=== PATIENT | female | born 1970 | race Caucasian/White ===

== ENCOUNTER 2016-07-16 11:00 | Observation (INO) | payer OTHER ==
[~2016-07-16] VITALS: Ht 170.2 cm; Wt 65.5 kg
[2016-07-16] VITALS (9 sets, daily range): BP systolic 99–126; BP diastolic 57–73
[2016-07-16 12:25] LABS: EOSINOPHIL (%) 0.9 % (0-5); EOSINOPHIL COUNT 0.1 K/uL (0-0.3); HEMATOCRIT 27.2 % (36.0-46.0); IMMATURE GRANULOCYTE (%) 0.3 % (0.0-0.7); INSTRUMENT ABS NEUTROPHIL CT 6.3 K/uL; LYMPHOCYTE COUNT 1.1 K/uL (1.0-2.8); MCH 16.8 PG (29.0-34.0); MCHC 26.5 G/DL (30.0-36.0); MCV 63.6 FL (83-99); MEAN PLAT.VOLUME 10.1 uM^3 (9.5-12.4); MONOCYTE (%) 4.6 % (3-12); MONOCYTE COUNT 0.4 K/uL (0-0.8); NEUTROPHIL (%) 79.5 % (45-76); NEUTROPHIL COUNT 6.3 K/uL (1.8-6.4); PLATELET COUNT 281 K/uL (156-360); RBC DIS.WIDTH-CV 17.6 % (11.8-14.6); RBC DIS.WIDTH-SD 39.8 % (39-53); RED BLOOD COUNT 4.28 M/uL (3.80-5.20); WHITE BLOOD COUNT 7.9 K/uL (4.1-10.2)
[2016-07-16 12:33] LABS: D-DIMER ELISA 0.67 mg/L FEU (< 0.57); INTER. NORMALIZED RATIO 1.1; PROTHROMBIN TIME 10.7 (9.2-11.2); PTT 24.7 (25-32)
[2016-07-16 13:20] LABS: TROP-I INTERPRETATION NEGATIVE; TROPONIN-I < 0.01 ng/mL (0.0-0.30)
[2016-07-16 13:21] LABS: ANION GAP 8 MEQ/L (2-14); CHLORIDE 109 MEQ/L (99-109); GFR ESTIMATE (CALCULATED) > 59 mL/min/; GLUCOSE 98 mg/dL (70-99); POTASSIUM 3.4 MEQ/L (3.7-5.4); SAMPLE HEMOLYSIS CHECK 0; SAMPLE ICTERIC CHECK 0; SAMPLE LIPEMIA CHECK 0; SODIUM 141 MEQ/L (136-147); UREA NITROGEN (BUN) 8 mg/dL (9-23)
[2016-07-16] MEDS ORDERED: CALCIUM 600 +1 EA16 PO (15:26)
[2016-07-16] MEDS ORDERED: LEVO-T112 MCG PO (15:26)
[2016-07-16] MEDS ORDERED: FEOSOL325 MG PO (15:27)
[2016-07-16] MEDS ORDERED: DAILY VALUE1 EACH PO (15:27)
[2016-07-16 23:48] LABS: CHLORIDE 112 mEq/L (99-109); POTASSIUM 3.8 mEq/L (3.7-5.4); SODIUM 142 mEq/L (136-147)
[2016-07-16 23:50] LABS: GLUCOSE 99 mg/dL (70-99)
[2016-07-16 23:51] LABS: ANION GAP 7 MEQ/L (2-14)
[2016-07-16 23:52] LABS: TOTAL BILIRUBIN 0.4 mg/dL (0.0-1.0)
[2016-07-16 23:54] LABS: ALKALINE PHOSPHATASE 37 IU/L (3-129); GFR ESTIMATE (CALCULATED) > 59 mL/min/
[2016-07-16 23:55] LABS: UREA NITROGEN (BUN) 5 mg/dL (9-23)
[2016-07-17 00:09] LABS: HEMATOCRIT 27.7 % (36.0-46.0); MCH 18.4 PG (29.0-34.0); MCHC 27.8 G/DL (30.0-36.0); MCV 66.3 FL (83-99); RBC DIS.WIDTH-CV 20.7 % (11.8-14.6); RBC DIS.WIDTH-SD 45.3 % (39-53); RED BLOOD COUNT 4.18 M/uL (3.80-5.20); WHITE BLOOD COUNT 7.3 K/uL (4.1-10.2)
[2016-07-17 02:45] LABS: HEMATOLOGY COMMENT 1 SN; PLAT.SUFFICIENCY ADEQUATE; PLATELET CLUMPS PRESENT - PLATELET COUNT APPEARS ADQ.; PLATELET COUNT UNABLE TO REPORT K/uL (156-360)
[2016-07-17 03:55] VITALS: BP 102/51
[2016-07-17 06:47] LABS: MCH 18.5 PG (29.0-34.0); MCHC 27.9 G/DL (30.0-36.0); MCV 66.5 FL (83-99); MEAN PLAT.VOLUME 10.1 uM^3 (9.5-12.4); PLATELET COUNT 244 K/uL (156-360); RBC DIS.WIDTH-CV 20.7 % (11.8-14.6); RBC DIS.WIDTH-SD 45.5 % (39-53); RED BLOOD COUNT 4.21 M/uL (3.80-5.20); WHITE BLOOD COUNT 6.1 K/uL (4.1-10.2)
[2016-07-17 07:00] VITALS: BP 111/73
[2016-07-17 07:39] LABS: ANION GAP 8 MEQ/L (2-14); CHLORIDE 110 MEQ/L (99-109); GFR ESTIMATE (CALCULATED) > 59 mL/min/; GLUCOSE 99 mg/dL (70-99); POTASSIUM 3.7 MEQ/L (3.7-5.4); SAMPLE HEMOLYSIS CHECK 0; SAMPLE ICTERIC CHECK 0; SAMPLE LIPEMIA CHECK 0; SODIUM 142 MEQ/L (136-147); UREA NITROGEN (BUN) 6 mg/dL (9-23)
[2016-07-17 10:34] LABS: HEMATOCRIT 29.4 % (36.0-46.0); MCV 66.8 FL (83-99)
[2016-07-17 11:37] VITALS: BP 114/63
[2016-07-17 16:00] VITALS: BP 127/64
[2016-07-17 20:06] VITALS: BP 125/74
[2016-07-17 23:43] VITALS: BP 104/54
[2016-07-18 03:29] VITALS: BP 100/54
[2016-07-18 06:50] LABS: HEMATOCRIT 27.8 % (36.0-46.0); MCHC 28.4 G/DL (30.0-36.0); MEAN PLAT.VOLUME 10.3 uM^3 (9.5-12.4); PLATELET COUNT 257 K/uL (156-360); RBC DIS.WIDTH-CV 20.9 % (11.8-14.6); RBC DIS.WIDTH-SD 45.8 % (39-53); RED BLOOD COUNT 4.15 M/uL (3.80-5.20); WHITE BLOOD COUNT 4.7 K/uL (4.1-10.2)
[2016-07-18 07:54] LABS: ANION GAP 5 MEQ/L (2-14); CHLORIDE 112 MEQ/L (99-109); GFR ESTIMATE (CALCULATED) > 59 mL/min/; GLUCOSE 90 mg/dL (70-99); POTASSIUM 3.5 MEQ/L (3.7-5.4); SAMPLE HEMOLYSIS CHECK 0; SAMPLE ICTERIC CHECK 0; SAMPLE LIPEMIA CHECK 0; SODIUM 142 MEQ/L (136-147); UREA NITROGEN (BUN) 6 mg/dL (9-23)
[2016-07-18 08:00] VITALS: BP 110/68
[2016-07-18 12:00] VITALS: BP 113/69
[2016-07-18] MEDS ORDERED: FEOSOL325 MG PO (14:12)
[2016-07-18] MEDS ORDERED: BUSPAR15 MG PO (15:46)
[2016-07-18] MEDS ORDERED: ALPRAZOLAM0.5 MG PO (15:46)
== END 2016-07-18 16:47 | disposition home or self-care (01) ==
LOC: EME 11:00 → 2EAST 14:53 → EDOF 14:53 → 2EAST 17:04
PROVIDERS: Emergency Medicine; Hospitalist; Internal Medicine
PROC: 30233N1 Transfusion of Nonautologous Red Blood Cells into Peripheral Vein, Percutaneous Approach (ICD-10-PCS; principal; 2016-07-16)
DX: D62 Acute posthemorrhagic anemia (principal); E03.9 Hypothyroidism, unspecified; Z91.14 Patient's other noncompliance with medication regimen; D25.9 Leiomyoma of uterus, unspecified; F41.9 Anxiety disorder, unspecified; N92.0 Excessive and frequent menstruation with regular cycle
CPT/HCPCS: 71010; 71275; 76856; 80048; 80053; 84443; 84484; 85014; 85018; 85025; 85027; 85379; 85610; 85730; 86880; 86900; 86901; 86920; 93005; 99281; 99285; G0378; J1200; J7030; P9016

== ENCOUNTER 2016-08-15 08:16 | Day surgery (SDC) | payer OTHER ==
[~2016-08-15] VITALS: Ht 170.2 cm; Wt 62.6 kg
[~2016-08-15 08:16] MED LIST: ALPRAZOLAM0.5 MG PO; BUSPAR15 MG PO; BUSPAR7.5 MG PO; CALCIUM 600 +1 EA16 PO; DAILY VALUE1 EACH PO; FEOSOL325 MG PO; LEVO-T112 MCG PO; LYSTEDA650 MG PO; MEGACE20 MG PO; SLOW RELEASE I142 M1 PO; XANAX0.5 MG PO
[2016-08-15 08:40] VITALS: BP 113/73
[2016-08-15 13:40] VITALS: BP 111/58
[2016-08-15 16:06] VITALS: BP 106/71
[2016-08-15 20:06] VITALS: BP 126/65
[2016-08-16 00:19] VITALS: BP 108/62
[2016-08-16 03:45] VITALS: BP 117/67
[2016-08-16 07:25] LABS: EOSINOPHIL (%) 0.3 % (0-5); HEMATOCRIT 30.8 % (36.0-46.0); IMMATURE GRANULOCYTE (%) 0.3 % (0.0-0.7); INSTRUMENT ABS NEUTROPHIL CT 6.5 K/uL; LYMPHOCYTE COUNT 1.8 K/uL (1.0-2.8); MCHC 29.9 G/DL (30.0-36.0); MCV 73.7 FL (83-99); MONOCYTE (%) 5.6 % (3-12); MONOCYTE COUNT 0.5 K/uL (0-0.8); NEUTROPHIL (%) 73.2 % (45-76); NEUTROPHIL COUNT 6.5 K/uL (1.8-6.4); RED BLOOD COUNT 4.18 M/uL (3.80-5.20); WHITE BLOOD COUNT 8.9 K/uL (4.1-10.2)
[2016-08-16 07:30] VITALS: BP 105/62
[2016-08-16 07:31] LABS: ANION GAP 7 MEQ/L (2-14); CHLORIDE 109 MEQ/L (99-109); GFR ESTIMATE (CALCULATED) > 59 mL/min/; GLUCOSE 92 mg/dL (70-99); POTASSIUM 4.2 MEQ/L (3.7-5.4); SAMPLE HEMOLYSIS CHECK 0; SAMPLE ICTERIC CHECK 0; SAMPLE LIPEMIA CHECK 0; SODIUM 141 MEQ/L (136-147); UREA NITROGEN (BUN) 5 mg/dL (9-23)
[2016-08-16 07:59] LABS: MEAN PLAT.VOLUME 10.6 uM^3 (9.5-12.4); PLAT.SUFFICIENCY ADEQUATE; PLATELET COUNT 197 K/uL (156-360)
[2016-08-16 11:17] VITALS: BP 105/62
== END 2016-08-16 11:27 | disposition home or self-care (01) ==
LOC: SDC 08:16 → 2EAST 11:50 → 2SOUTH 11:50 → 2EAST 13:49
PROVIDERS: Obstetrics & Gynecology Gynecology
DX: D25.9 Leiomyoma of uterus, unspecified (principal); N84.0 Polyp of corpus uteri; N80.0 Endometriosis of uterus; N80.3 Endometriosis of pelvic peritoneum; E03.9 Hypothyroidism, unspecified; D50.0 Iron deficiency anemia secondary to blood loss (chronic); F41.9 Anxiety disorder, unspecified; Z80.3 Family history of malignant neoplasm of breast; Z80.0 Family history of malignant neoplasm of digestive organs; Z80.6 Family history of leukemia; Z83.3 Family history of diabetes mellitus; Z82.49 Family history of ischemic heart disease and other diseases of the circulatory system
CPT/HCPCS: 80048; 85025; 87086; 88307; G0378; J0131; J0690; J1100; J1170; J1644; J1885; J2175; J2250; J2405; J2710; J7120